=== PATIENT | female | born 1960 | race Caucasian/White ===

== ENCOUNTER 2017-06-26 09:37 | Day surgery (SDC) | payer BC ==
[2017-06-19 10:10] VITALS: BMI 23.8
[2017-06-26] MEDS ORDERED: PROPOFOL 20 ML ONE ×2 (09:47)
[2017-06-26 10:25] VITALS: TEMP 98.5
[2017-06-26 14:52] VITALS: BP 104/74; PULSE 63
== END 2017-06-26 11:50 | disposition home or self-care (01) ==
LOC: FASU-ENDO 09:37
PROVIDERS: ATTEND Internal Medicine Gastroenterology
PROC: 0DJD8ZZ Inspection of Lower Intestinal Tract, Via Natural or Artificial Opening Endoscopic (ICD-10-PCS; principal; 2017-06-26 10:56)
DX: Z12.11 Encounter for screening for malignant neoplasm of colon (principal); K64.8 Other hemorrhoids

== ENCOUNTER 2018-09-24 09:22 | Day surgery (SDC) | payer BC ==
[2018-09-17 17:48] VITALS: BMI 22.8
[2018-09-24] MEDS ORDERED: PROPOFOL 20 ML ONE ×2 (10:59)
[2018-09-24] MEDS ORDERED: LIDOCAINE HCL/PF 2% SDV 5ML VIAL ONE (10:59)
[2018-09-24 14:16] VITALS: TEMP 97.4
[2018-09-24 14:20] VITALS: BP 94/62; PULSE 71
== END 2018-09-24 13:15 | disposition home or self-care (01) ==
LOC: FASU-ENDO 09:22
PROVIDERS: ATTEND Internal Medicine Gastroenterology
PROC: 0DJD8ZZ Inspection of Lower Intestinal Tract, Via Natural or Artificial Opening Endoscopic (ICD-10-PCS; principal; 2018-09-24 11:12)
DX: Z12.11 Encounter for screening for malignant neoplasm of colon (principal); K64.1 Second degree hemorrhoids

== ENCOUNTER 2019-05-06 11:58 | Day surgery (SDC) | payer BC ==
[2019-05-04 13:50] VITALS: BMI 23.8
[2019-05-06 14:48] VITALS: TEMP 97.7
[2019-05-06 14:51] VITALS: BP 118/74; PULSE 70
--- NOTE | 2019-05-11 13:37 | PATH ---
Surgical Pathology Report Patient Name: BERNARD VICENTE [facility]. Rec. #: [id number] /Age/Gender: 1960 (Age: 59) / F Account: [id number] Location: [facility] Taken: 05/06/2019 Received: 05/06/2019 Reported: 05/11/2019 Physicians: Stacie Etienne M.D. Specimen(s) Received A: BX SECOND PORTION OF DUODENUM B: BX GASTRIC ANTRUM C: BX GE JUNCTION D: BX MID ESOPHAGUS Clinical History Dysphagia Postoperative diagnosis: Gastritis, hiatal hernia Final Diagnosis A. SECOND PORTION OF DUODENUM, BIOPSY: DUODENAL MUCOSA WITH NO PATHOLOGIC FINDINGS. B. GASTRIC ANTRUM, BIOPSY: MILD CHRONIC GASTRITIS. IMMUNOSTAIN IS NEGATIVE FOR H. PYLORI ORGANISMS. C. GE JUNCTION, BIOPSY: GASTRIC (CARDIA- TYPE) MUCOSA SHOWING MILD CHRONIC INFLAMMATION. NEGATIVE FOR INTESTINAL METAPLASIA. D. MID ESOPHAGUS, BIOPSY: ESOPHAGEAL (SQUAMOUS) MUCOSA WITH NO PATHOLOGIC FINDINGS. NO COLUMNAR EPITHELIUM/INTESTINAL METAPLASIA IS IDENTIFIED. Electronically Signed Haven Robbins M.D. Gross Description A. Received in formalin, labeled "biopsy second portion of duodenum" is a ricketts, irregular portion of soft tissue measuring 0.3 cm. in greatest dimension. The specimen is submitted in toto in one cassette. B. Received in formalin, labeled "biopsy gastric antrum" is a ricketts, irregular portion of soft tissue measuring 0.1 cm. in greatest dimension. The specimen is submitted in toto in one cassette. C. Received in formalin, labeled "biopsy GE junction" is a ricketts, irregular portion of soft tissue measuring 0.5 cm. in greatest dimension. The specimen is submitted in toto in one cassette. D. Received in formalin, labeled "biopsy mid esophagus" is a ricketts, irregular portion of soft tissue measuring 0.2 cm. in greatest dimension. The specimen is submitted in toto in one cassette. 05/07/2019 saudi05/07/2019
== END 2019-05-06 14:25 | disposition home or self-care (01) ==
LOC: FASU-ENDO 11:58
PROVIDERS: ATTEND Internal Medicine Gastroenterology
PROC: 0DB68ZX Excision of Stomach, Via Natural or Artificial Opening Endoscopic, Diagnostic (ICD-10-PCS; 2019-05-06)
PROC: 0DB28ZX Excision of Middle Esophagus, Via Natural or Artificial Opening Endoscopic, Diagnostic (ICD-10-PCS; 2019-05-06)
PROC: 0DB48ZX Excision of Esophagogastric Junction, Via Natural or Artificial Opening Endoscopic, Diagnostic (ICD-10-PCS; 2019-05-06)
PROC: 0DB98ZX Excision of Duodenum, Via Natural or Artificial Opening Endoscopic, Diagnostic (ICD-10-PCS; principal; 2019-05-06 13:22)
DX: K29.50 Unspecified chronic gastritis without bleeding (principal); K20.9 Esophagitis, unspecified; K44.9 Diaphragmatic hernia without obstruction or gangrene; R10.13 Epigastric pain
CPT/HCPCS: 88305-TC; 88342-TC